=== PATIENT | male | born 1995 | race African-American/Black ===

== ENCOUNTER 2019-03-20 06:17 | Emergency (ER) | payer OTHER ==
[2019-03-20 06:34] VITALS: TEMP 98.4
--- NOTE | 2019-03-20 07:16 | PDOC ---
*Physical Exam - Vital Signs Last Vital Signs Temp Pulse Resp BP Pulse Ox 98.4 F 83 16 127/85 99 03/20/19 06:30 03/20/19 06:30 03/20/19 06:30 03/20/19 06:30 03/20/19 06:30 - Physical Exam Comments: 03/20/19 07:15 The patient was examined by [JHON Kitchen] under my direct supervision. I personally evaluated the patient. I concur with the above findings and the plan of care. *DC/Admit/Observation/Transfer Diagnosis at time of Disposition: Laceration - Discharge Dispostion Disposition: HOME Condition at time of disposition: Stable - Referrals Referrals: Tristian Jefferson [Primary Care Provider] - - Patient Instructions Printed Discharge Instructions: DI for Laceration Repair Additional Instructions: You were evaluated for your laceration (cut) It was repaired with stitches Keep the area clean and dry for 24 hours Pat dry after washing You may take 600mg of Motrin every 6 hours as needed for pain (Three over the counter tabs 200mg each) Return in one week to have the stitches removed Return to the ER sooner if you develop fever, redness around the site, purulent drainage, or if you have any changes in your symptoms - Post Discharge Activity Forms/Work/School Notes: Back to Work
[2019-03-20] MEDS ORDERED: DIPHTH,PERTUSS(ACELL),TET 0.5 ML DISP.SYRIN IM ONE ×2 (07:37→07:41)
--- NOTE | 2019-03-20 07:37 | PDOC ---
History of Present Illness - General Chief Complaint: Laceration Stated Complaint: LACERATION Time Seen by Provider: 03/20/19 07:09 Past History - Past Medical History Allergies/Adverse Reactions: Allergies Allergy/AdvReac Type Severity Reaction Status Date / Time Penicillins Allergy Unknown Verified 03/20/19 06:35 Home Medications: Ambulatory Orders Albuterol Sulfate [Albuterol Sulfate Hfa] 18 gm IH PRN 03/20/19 Asthma: Yes COPD: No - Immunization History Immunization Up to Date: No - Suicide/Smoking/Psychosocial Hx Smoking History: Current every day smoker Number of Cigarettes Smoked Daily: 2 Information on smoking cessation initiated: Yes Hx Alcohol Use: No Drug/Substance Use Hx: No Review of Systems - Review of Systems Constitutional: No: Chills, Fever, Weakness Integumentary: Yes: Other (laceration to R thumb). No: Bruising, Rash Neurological: No: Numbness, Tingling, Weakness *Physical Exam - Vital Signs Last Vital Signs Temp Pulse Resp BP Pulse Ox 98.4 F 83 16 127/85 99 03/20/19 06:30 03/20/19 06:30 03/20/19 06:30 03/20/19 06:30 03/20/19 06:30 - Physical Exam General Appearance: Yes: Nourished, Appropriately Dressed. No: Apparent Distress Extremity: positive: Normal Capillary Refill, Normal Inspection, Normal Range of Motion Integumentary: positive: Normal Color, Dry, Warm, Other (1cm laceration to the dorsal thumb over the MCP) Procedures - Laceration/Wound Repair Right Dorsal 1st digit Wound Length: to 2.5 cm Wound Explored: clean, no foreign body present Wound's Depth, Shape: superficial, linear Irrigated w/ Saline: Yes Betadine Prep: Yes Anesthesia: 1% Lidocaine Amount of Anesthetic (ccs): 2 Wound Repaired With: Sutures Suture Size/Type: 5:0 Number of Sutures: 2 (simle interrupted) Layer Closure: No Sterile Dressing Applied: Yes Medical Decision Making - Medical Decision Making 03/20/19 08:23 The patient is a 23 y/o M with no PMH who presents to the ED for a laceration to the top of his R hand. He states he cut himself with a scissor this morning. Bleeding is controlled at this time. Pt is R hand dominant. Denies fevers, chills, numbness, tingling and weakness to the affected extremity. Does not remember the date of his last tetanus. A/P: Laceration 1cm laceration present to the R dorsal thumb over the MCP. Linear and superficial Pt has FROM of the R thumb; able to oppose thumb to all digits Wound was cleaned under high pressure normal saline. No foreign body present. Wound repaired with 2 simple interrupted sutures. See procedure note. Instructed to return in 7 days to have the sutures removed. DC home with return precautions Pt understands all return precautions and all questions were answered. *DC/Admit/Observation/Transfer Diagnosis at time of Disposition: Laceration - Discharge Dispostion Disposition: HOME Condition at time of disposition: Stable Decision to Admit order: No - Referrals Referrals: Tristian Jefferson [Primary Care Provider] - - Patient Instructions Printed Discharge Instructions: DI for Laceration Repair Additional Instructions: You were evaluated for your laceration (cut) It was repaired with stitches Keep the area clean and dry for 24 hours Pat dry after washing You may take 600mg of Motrin every 6 hours as needed for pain (Three over the counter tabs 200mg each) Return in one week to have the stitches removed Return to the ER sooner if you develop fever, redness around the site, purulent drainage, or if you have any changes in your symptoms - Post Discharge Activity Forms/Work/School Notes: Back to Work
[2019-03-20 08:43] VITALS: BP 120/75; PULSE 79
== END 2019-03-20 08:44 | disposition home or self-care (01) ==
LOC: JER 06:17
PROC: 3E0234Z Introduction of Serum, Toxoid and Vaccine into Muscle, Percutaneous Approach (ICD-10-PCS; principal; 2019-03-20)
PROC: 0HQFXZZ Repair Right Hand Skin, External Approach (ICD-10-PCS; 2019-03-20)
DX: S61.011A Laceration without foreign body of right thumb without damage to nail, initial encounter (principal); W27.2XXA Contact with scissors, initial encounter; Y93.89 Activity, other specified; Y92.89 Other specified places as the place of occurrence of the external cause; Y99.8 Other external cause status
CPT/HCPCS: 12001-25; 90471; 90715; 99283-25

== ENCOUNTER 2019-03-27 14:07 | Emergency (ER) | payer OTHER ==
--- NOTE | 2019-03-27 14:21 | PDOC ---
Suture Removal/Wound Check HPI - History of Present Illness Chief Complaint: Suture/Staple Removal(Here) Stated Complaint: laceration Time Seen by Provider: 03/27/19 14:08 History Source: Yes: Patient, Old Records Exam Limitations: Yes: No Limitations Treated at: [facility] Date of Last ED visit: 03/20/19 - Previous ED Treatment Type of procedure performed on last visit: Yes: Laceration Repair Tetanus Immunization: Yes: Given at last ED visit Past History - Past Medical History Allergies/Adverse Reactions: Allergies Allergy/AdvReac Type Severity Reaction Status Date / Time Penicillins Allergy Unknown Verified 03/27/19 14:21 Home Medications: Ambulatory Orders Albuterol Sulfate [Albuterol Sulfate Hfa] 18 gm IH PRN 03/20/19 Asthma: Yes COPD: No - Immunization History Immunization Up to Date: No - Suicide/Smoking/Psychosocial Hx Smoking History: Current every day smoker Number of Cigarettes Smoked Daily: 2 Hx Alcohol Use: No Drug/Substance Use Hx: No Suture Removal/Wound Check PE - Physical Exam Laceration/Wound Check Symptoms: reports: None Current Severity Level: None Maximum Severity Level: None Pain Localization: None Location of Laceration/Wound: right: Finger (thumb) Pain Radiation: None *Review of Systems - Review of Systems Able to Perform ROS?: Yes All Other Systems: Reviewed and Negative *Physical Exam - Physical Exam General Appearance: Yes: Appropriately Dressed. No: Apparent Distress Integumentary: positive: Normal Color, Dry, Warm, Other (suture line well approximated. No s/s infection present.) Medical Decision Making - Medical Decision Making 03/27/19 14:23 A/P: 23yo M for suture removal 2 sutures removed without incident. Patient tolerated well. Discharge *DC/Admit/Observation/Transfer Diagnosis at time of Disposition: Visit for suture removal - Referrals - Patient Instructions - Post Discharge Activity
[2019-03-27 14:23] VITALS: BP 105/65; PULSE 75; TEMP 98.1
== END 2019-03-27 14:53 | disposition home or self-care (01) ==
LOC: JERFT 14:07
DX: Z48.817 Encounter for surgical aftercare following surgery on the skin and subcutaneous tissue (principal); Z48.02 Encounter for removal of sutures
CPT/HCPCS: 99281-25